=== PATIENT | male | born 1985 | race Caucasian/White ===

== ENCOUNTER 2017-03-22 15:39 | Emergency (ER) | payer OTHER ==
[2017-03-22 15:48] VITALS: BP 151/73; PULSE 67; TEMP 98.4; BMI 39.5
[2017-03-22] MEDS ORDERED: ASPIRIN 81 MG CHEWABLE TABLETS PO ONE (16:23)
[2017-03-22] MEDS ORDERED: ASPIRIN 81 MG CHEWABLE TABLETS ONE (16:32)
--- NOTE | 2017-03-22 16:43 | PDOC ---
Attending Attestation - Resident Resident Name: Kathryn Travis - HPI HPI: 03/22/17 16:41 32 yo male p/w intermittent chest pain for some time No family h/o early cardiac demise -pt denies any significant surgical history - Physicial Exam PE: 03/22/17 16:43 obese 32 yo male states he gets chest pain when he goes to bed and sometimes in the morning. He does have of habit of eating before going to bed lungs cta b/l cvr [id number] abd soft,nontender,protuberant ext from, o defor,ity neuro no gross focal neuro deficits 03/22/17 18:06 - Medical Decision Making 03/22/17 18:08 labs reviewed and unremarkable ekg nsr with no evidence of ischemia pt to followup with PCP. Discussed GERD and avoiding eating just before bed
[2017-03-22 17:24] LABS: BASOPHIL 0.6 % (0-2.0); EOSINOPHIL 1.1 % (0-4.5); MCH 28.9 pg (25.7-33.7); MCHC 33.8 g/dl (32.0-35.9); MEAN CELL VOLUME 85.5 fl (80-96); MEAN PLT VOLUME 9.1 fl (7.5-11.1); PLATELET COUNT 240 K/MM3 (134-434); WHITE BLOOD COUNT 10.9 K/mm3 (4.0-10.0)
--- NOTE | 2017-03-22 17:40 | PDOC ---
History of Present Illness - General Chief Complaint: Chest Pain Stated Complaint: CHEST PAIN Time Seen by Provider: 03/22/17 15:57 History Source: Patient Exam Limitations: No Limitations - History of Present Illness Initial Comments: 03/22/17 17:41 CC: Chest Pain Patient is a 32 y.o. 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 Patient notes that his girlfriend became concerned today that he might be having a blood clot or heart attack prompting his visit to the ED. Patient states the chest pain is localized to his L substernal area, non-radiating, "stabbing" and often associated with anxious thoughts about his life circumstances. Presenting Symptoms: Chest Pain Timing/Duration: reports: intermittent, other Severity/Quality: reports: stabbing Location: reports: other (L sided substernal) Chest Pain Radiation: reports: no radiation Activities at Onset: reports: emotional upset Nitro Today/Relief: Yes: no nitro taken today Aspirin Received prior to arrival (Core Measure): Yes: no aspirin today Past History - Past Medical History Allergies/Adverse Reactions: Allergies Allergy/AdvReac Type Severity Reaction Status Date / Time Penicillins Allergy Intermediate Swelling Verified 03/22/17 15:43 Home Medications: Ambulatory Orders Hydrocortisone Acetate [Anusol Hc Suppository -] 25 mg RC DAILY PRN #14 supp.rect 05/16/15 Phenylephrine/Shk Lv/Mo/Pet,Wh [Hemorrhoidal Ointment] 1 applic RC TID PRN #1 tube 05/16/15 Asthma: Yes Psychiatric Problems: Yes (ANXIETY, SI CHILD.) - Family Disease History Family Disease History: Heart Disease: Mother - Psycho/Social/Smoking Cessation Hx Anxiety: Yes Suicidal Ideation: No (NO SI NOW) Smoking History: Never smoked Have you smoked in the past 12 months: No Information on smoking cessation initiated: No Hx Alcohol Use: No Drug/Substance Use Hx: No Substance Use Type: Marijuana *Physical Exam - Vital Signs Last Vital Signs Temp Pulse Resp BP Pulse Ox 98.4 F 67 18 151/73 98 03/22/17 15:44 03/22/17 15:44 03/22/17 15:44 03/22/17 15:44 03/22/17 15:44 ED Treatment Course - LABORATORY CBC & Chemistry Diagram: 03/22/17 17:15 03/22/17 17:15 - ADDITIONAL ORDERS Additional order review: Laboratory Results 03/22/17 03/22/17 03/22/17 17:15 17:15 17:15 INR Cancelled Sodium 138 Potassium 4.8 Chloride 105 Carbon Dioxide 23 Anion Gap 10 BUN 13 Creatinine 0.8 Creat Clearance w eGFR > 60 Random Glucose 84 Calcium 8.5 Magnesium 2.0 Total Bilirubin 0.4 AST 29 ALT 42 Alkaline Phosphatase 88 Creatine Kinase 188 Creatine Kinase Index 0.9 CK-MB (CK-2) 1.618 CK-MB (CK-2) Rel Index Cancelled Troponin I < 0.02 Total Protein 7.2 Albumin 3.8 03/22/17 17:15 RBC 5.41 MCV 85.5 MCHC 33.8 RDW 14.0 MPV 9.1 Neutrophils % 78.0 Lymphocytes % 14.9 Monocytes % 5.4 Eosinophils % 1.1 Basophils % 0.6 - Medications Given in the ED: ED Medications Discontinued Medications Generic Name Dose Route Start Last Admin Trade Name Marciano PRN Reason Stop Dose Admin Aspirin 162 mg 03/22/17 16:23 03/22/17 16:34 Asa - PO 03/22/17 16:24 162 mg ONCE ONE Administration Medical Decision Making - Medical Decision Making 03/22/17 23:44 Patient's EKG showed NSR and Troponin was negative (-1). Moreover patient's symptoms were not industrial relations representative of typical ACS (pain "stabbing," intermittent, localized to L sub-clavicular area) and patient associated his episodes of chest pain with his anxiety. Patient was counseled on weight loss, anxiety control and discharged with instruction to follow up with PCP in the coming week. *DC/Admit/Observation/Transfer Diagnosis at time of Disposition: Chest pain due to psychological stress - Discharge Dispostion Disposition: HOME Condition at time of disposition: Good - Referrals Referrals: Brigida Sandra MD [Primary Care Provider] - - Attestations Physician Attestion: 03/22/17 18:24 I, Dr. Kathryn Travis, attest that this document has been prepared under my direction and personally reviewed by me in its entirety. I further attest, that it accurately reflects all work, treatment, procedures and medical decision -making performed by me.
[2017-03-22 17:52] LABS: ALBUMIN 3.8 g/dl (3.4-5.0); ANION GAP 10 (8-16); BILIRUBIN,TOTAL 0.4 mg/dL (0.2-1.0); CALCIUM 8.5 mg/dL (8.5-10.1); CO2 23 mmol/L (21-32); CREATININE 0.8 mg/dL (0.7-1.3); GLUCOSE,RANDOM 84 mg/dL (74-106); SGPT/ALT 42 U/L (12-78); TOT PROT 7.2 g/dl (6.4-8.2)
[2017-03-22 17:55] LABS: ALK PHOS 88 U/L (45-117); TROPONIN I < 0.02 ng/ml (0.00-0.05)
[2017-03-22 17:59] LABS: SGOT/AST 29 U/L (15-37)
--- NOTE | 2017-03-23 10:32 | EKG ---
Test Reason : Blood Pressure : / mmHG Vent. Rate : 070 BPM Atrial Rate : 070 BPM P-R Int : 122 ms QRS Dur : 102 ms QT Int : 372 ms P-R-T Axes : 030 038 042 degrees QTc Int : 401 ms POOR DATA QUALITY, INTERPRETATION MAY BE ADVERSELY AFFECTED NORMAL SINUS RHYTHM NORMAL ECG NO PREVIOUS ECGS AVAILABLE Confirmed by LOAN WILLIS MD ([id number]) on 03/23/2017 10:32:35 AM Referred By: Confirmed By:LOAN WILLIS MD
== END 2017-03-22 18:35 | disposition home or self-care (01) ==
LOC: JER 15:39
DX: R07.89 Other chest pain (principal); J45.909 Unspecified asthma, uncomplicated; F41.9 Anxiety disorder, unspecified
CPT/HCPCS: 36415; 80053; 82550; 82553; 83735; 84484; 85025; 93005; 93010; 99282-25

== ENCOUNTER 2022-06-18 04:08 | Day surgery (SDC) | payer OTHER ==
[2022-06-17 13:06] VITALS: BMI 43.1
[~2022-06-18 04:08] MED LIST: ACETAMINOPHEN 325 MG TABLET (FP) PO PRN; CYCLOPENTOLATE HCL 1% OPHTH SOLN 2 ML BOTTLE OP SCH; KETOROLAC TROMETHAMINE 0.5% EYE DROP 1 DROP DROPS OP SCH; OFLOXACIN 0.3% OPHTHALMIC SOLUTION 5 ML BOTTLE OP SCH; PHENYLEPHRINE 2.5% OPHTH SOLN 15 ML BOTTLE OP SCH; TROPICAMIDE 1% OPHTH SOLN 15 ML BOTTLE OP SCH
[2022-06-18] MEDS ORDERED: CHONDROITIN SU A/HYALUR SOD 1 KIT ONE (07:11)
[2022-06-18] MEDS ORDERED: TETRACAINE 0.5% OPHTH SOLN 2 ML BOTTLE ONE (07:29)
[2022-06-18] MEDS ORDERED: LIDOCAINE HCL/PF 1% SDV 5ML VIAL ONE (07:29)
[2022-06-18] MEDS ORDERED: POVIDONE-IODINE 5% OPHTHALMIC PREP 30 ML SOLUTION ONE (07:29)
[2022-06-18] MEDS ORDERED: EPINEPHrine/PF 1 MG/1 ML (1:1,000) AMPULE ONE (07:29)
[2022-06-18] MEDS ORDERED: TRYPAN BLUE 0.5 ML DISP.SYRIN ONE (07:29)
[2022-06-18] MEDS ORDERED: KETOROLAC TROMETHAMINE 0.5% EYE DROP 1 DROP DROPS ONE (08:15)
[2022-06-18] MEDS ORDERED: TROPICAMIDE 0.5% OPHTHALMIC SOLN 15 ML BOTTLE ONE (08:16)
[2022-06-18] MEDS ORDERED: PHENYLEPHRINE 2.5% OPTHALMIC DROP BOTTLE ONE (08:16)
[2022-06-18] MEDS ORDERED: OFLOXACIN 0.3% OPHTHALMIC SOLUTION 5 ML BOTTLE ONE (08:16)
[2022-06-18] MEDS ORDERED: CYCLOPENTOLATE HCL 1% OPHTH SOLN 2 ML BOTTLE ONE (08:16)
[2022-06-18 08:37] VITALS: RESP 18
[2022-06-18] MEDS ORDERED: OFLOXACIN 0.3% OPHTHALMIC SOLUTION 5 ML BOTTLE OS ONE ×3 (08:45→08:55)
[2022-06-18] MEDS ORDERED: PHENYLEPHRINE 2.5% OPHTH SOLN 15 ML BOTTLE OS ONE ×2 (08:45→08:50)
[2022-06-18] MEDS ORDERED: KETOROLAC TROMETHAMINE 0.5% EYE DROP 1 DROP DROPS OS ONE ×3 (08:45→08:55)
[2022-06-18] MEDS ORDERED: TROPICAMIDE 0.5% OPHTHALMIC SOLN 15 ML BOTTLE OS ONE ×3 (08:45→08:55)
[2022-06-18] MEDS ORDERED: CYCLOPENTOLATE HCL 1% OPHTH SOLN 2 ML BOTTLE OS ONE ×3 (08:45→08:55)
[2022-06-18] MEDS ORDERED: PHENYLEPHRINE 2.5% OPTHALMIC DROP BOTTLE OS ONE (08:55)
[2022-06-18] MEDS ORDERED: MIDAZOLAM HCL 2 MG/2 ML SINGLE DOSE VIAL ONE (10:16)
[2022-06-18] MEDS ORDERED: TETRACAINE 0.5% OPHTH SOLN 2 ML BOTTLE OS ONE (10:17)
[2022-06-18] MEDS ORDERED: POVIDONE-IODINE 5% OPHTHALMIC PREP 30 ML SOLUTION OS ONE (10:19)
[2022-06-18] MEDS ORDERED: BSS (NA/CA/MG/K) BALANCED SALT SOLUTION OPHTH SOLN 15 ML BOTTLE IO ONE (10:25)
[2022-06-18] MEDS ORDERED: LIDOCAINE HCL 1% PRESERVATIVE FREE - 30ML VIAL IO ONE (10:28)
[2022-06-18] MEDS ORDERED: CHONDROITIN SU A/HYALUR SOD 1 KIT IO ONE (10:29)
[2022-06-18] MEDS ORDERED: TRYPAN BLUE 0.5 ML DISP.SYRIN IO ONE (10:30)
[2022-06-18] MEDS ORDERED: EPINEPHrine/PF 1 MG/1 ML (1:1,000) AMPULE SQ ONE (10:35)
[2022-06-18] MEDS ORDERED: ONDANSETRON 4 MG/2 ML VIAL IVPUSH PRN (10:45)
[2022-06-18] MEDS ORDERED: LACTATED RINGERS SOLUTION 1,000 ML IV SCH (10:45)
[2022-06-18 12:33] VITALS: BP 128/83; PULSE 71; TEMP 98.8
== END 2022-06-18 11:40 | disposition home or self-care (01) ==
LOC: JASU-SURG 04:08
PROVIDERS: ATTEND Ophthalmology
PROC: 08RK3JZ Replacement of Left Lens with Synthetic Substitute, Percutaneous Approach (ICD-10-PCS; principal; 2022-06-18 10:28)
DX: H26.9 Unspecified cataract (principal)

== ENCOUNTER 2023-11-25 04:27 | Day surgery (SDC) | payer OTHER ==
[2023-11-23 10:32] VITALS: BMI 48.6
[~2023-11-25 04:27] MED LIST changes: -CYCLOPENTOLATE HCL 1% OPHTH SOLN 2 ML BOTTLE OP SCH; -KETOROLAC TROMETHAMINE 0.5% EYE DROP 1 DROP DROPS OP SCH; -OFLOXACIN 0.3% OPHTHALMIC SOLUTION 5 ML BOTTLE OP SCH; -PHENYLEPHRINE 2.5% OPHTH SOLN 15 ML BOTTLE OP SCH; -TROPICAMIDE 1% OPHTH SOLN 15 ML BOTTLE OP SCH
[2023-11-25] MEDS ORDERED: LIDOCAINE HCL/PF 1% SDV 5ML VIAL ONE (07:24)
[2023-11-25] MEDS ORDERED: BUPIVACAINE HCL/PF 0.75% 10 ML VIAL ONE (07:24)
[2023-11-25] MEDS ORDERED: EPINEPHrine/PF 1 MG/1 ML (1:1,000) AMPULE ONE (07:24)
[2023-11-25] MEDS ORDERED: LIDOCAINE HCL/PF 2% SDV 5ML VIAL ONE (07:24)
[2023-11-25] MEDS ORDERED: POVIDONE-IODINE 5% OPHTHALMIC PREP 30 ML SOLUTION ONE (07:25)
[2023-11-25] MEDS ORDERED: BSS (NA/CA/MG/K) BALANCED SALT SOLUTION OPHTH SOLN 15 ML BOTTLE ONE (07:25)
[2023-11-25] MEDS ORDERED: OFLOXACIN 0.3% OPHTHALMIC SOLUTION 5 ML BOTTLE ONE (08:26)
[2023-11-25] MEDS ORDERED: KETOROLAC TROMETHAMINE 0.5% EYE DROP 1 DROP DROPS ONE (08:26)
[2023-11-25] MEDS: CYCLOPENTOLATE HCL 1% OPHTH SOLN 2 ML BOTTLE OP SCH (09:15)
[2023-11-25] MEDS: KETOROLAC TROMETHAMINE 0.5% EYE DROP 1 DROP DROPS OP SCH (09:15)
[2023-11-25] MEDS: OFLOXACIN 0.3% OPHTHALMIC SOLUTION 5 ML BOTTLE OP SCH (09:15)
[2023-11-25] MEDS: TROPICAMIDE 1% OPHTH SOLN 15 ML BOTTLE OP SCH (09:15)
[2023-11-25] MEDS: PHENYLEPHRINE 2.5% OPHTH SOLN 15 ML BOTTLE OP SCH (09:15)
[2023-11-25] MEDS: TROPICAMIDE 1% OPHTH SOLN 15 ML BOTTLE ONE (09:20)
[2023-11-25] MEDS: PHENYLEPHRINE 2.5% OPTHALMIC DROP BOTTLE OD ONE (09:25)
[2023-11-25] MEDS: KETOROLAC TROMETHAMINE 0.5% EYE DROP 1 DROP DROPS OD ONE (09:25)
[2023-11-25] MEDS: OFLOXACIN 0.3% OPHTHALMIC SOLUTION 5 ML BOTTLE OD ONE (09:25)
[2023-11-25] MEDS: CYCLOPENTOLATE HCL 1% OPHTH SOLN 2 ML BOTTLE ONE (09:25)
[2023-11-25] MEDS: BUPIVACAINE HCL/PF 0.75% 10 ML VIAL NR ONE ×2 (11:10→11:18)
[2023-11-25] MEDS: LIDOCAINE HCL/PF 2% SDV 5ML VIAL INF ONE ×2 (11:10→11:18)
[2023-11-25] MEDS ORDERED: TRYPAN BLUE 0.5 ML DISP.SYRIN ONE (11:11)
[2023-11-25] MEDS: POVIDONE-IODINE 5% OPHTHALMIC PREP 30 ML SOLUTION OD ONE (11:21)
[2023-11-25] MEDS: LIDOCAINE HCL 1% PRESERVATIVE FREE - 30ML VIAL IO ONE (11:26)
[2023-11-25] MEDS: BSS (NA/CA/MG/K) BALANCED SALT SOLUTION OPHTH SOLN 15 ML BOTTLE OD ONE ×2 (11:29)
[2023-11-25] MEDS: CHONDROITIN SU A/HYALUR SOD 1 KIT IO ONE ×3 (11:31)
[2023-11-25] MEDS: EPINEPHrine 1:1,000 1,000 MCG/ML ML SQ ONE ×2 (11:35)
[2023-11-25 12:01] VITALS: BP 148/79; PULSE 83; RESP 18; TEMP 98.6
== END 2023-11-25 12:32 | disposition home or self-care (01) ==
LOC: JASU-SURG 04:27
PROVIDERS: ATTEND Ophthalmology
PROC: 08RJ3JZ Replacement of Right Lens with Synthetic Substitute, Percutaneous Approach (ICD-10-PCS; principal; 2023-11-25 11:00)
DX: H26.9 Unspecified cataract (principal)
CPT/HCPCS: V2632